=== PATIENT | male | born 1965 | race Native Hawaiian/Other Pacific Islander ===

== ENCOUNTER 2016-12-16 11:54 | Inpatient (IN) | payer MEDICAID ==
[2016-12-16 12:54] LABS: BASO % 0.4 % (0.0-2.0); EOS # 0.3 K/uL (0.0-0.7); EOS % 3.7 % (0.0-4.0); HEMATOCRIT 40.5 % (35.0-51.0); LYMPH # 2.3 K/uL (1.0-4.3); MEAN CELL VOLUME 79.6 fl (80.0-94.0); MEAN CORPUSCULAR HEMOGLOBIN 26.8 pg (27.0-31.0); MEAN CORPUSCULAR HGB CONC 33.7 g/dL (33.0-37.0); MEAN PLATELET VOLUME 10.8 fl (7.2-11.7); MONO # 0.6 K/uL (0.0-0.8); MONO % 8.1 % (0.0-10.0); NEUT # 3.8 K/uL (1.8-7.0); NEUT % 54.8 % (50.0-75.0); NRBC % 0.1 % (0.0-0.0); RED CELL DISTRIBUTION WIDTH 13.7 % (11.5-14.5)
[2016-12-16 12:55] LABS: RBC URINE 1 /hpf (0-3); URINE BILIRUBIN NEGATIVE (NEGATIVE); URINE BLOOD NEGATIVE (NEGATIVE); URINE COLOR STRAW (YELLOW); URINE GLUCOSE (UA) >=500 mg/dL (Normal); URINE KETONE NEGATIVE (NEGATIVE); URINE LEUKOCYTE ESTERASE NEG Leu/uL (Negative); URINE PROTEIN NEGATIVE (NEGATIVE); URINE UROBILINOGEN 0.2-1.0 mg/dL (0.2-1.0); WBC URINE < 1 /hpf (0-5)
[2016-12-16 13:05] LABS: PARTIAL THROMBOPLASTIN TIME 31.6 Seconds (25.6-37.1)
[2016-12-16 13:08] LABS: ALB/GLOB RATIO 1.4 (1.0-2.1); ALKALINE PHOSPHATASE 96 U/L (38-126); ALT/SGPT 67 U/L (21-72); AST/SGOT 43 U/L (17-59); BILIRUBIN,TOTAL 0.6 mg/dl (0.2-1.3); BLOOD UREA NITROGEN 18 mg/dl (9-20); CALCIUM 9.1 mg/dL (8.4-10.2); CARBON DIOXIDE 24 mmol/L (22-30); CHLORIDE 101 mmol/L (98-107); GFR AFRICAN-AMERICAN > 60; GLUCOSE,RANDOM 211 mg/dL (75-110); POTASSIUM 4.1 MMOL/L (3.6-5.0); SODIUM 136 mmol/l (132-148); TOTAL PROTEIN 7.4 G/DL (6.3-8.2)
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
--- NOTE | 2016-12-16 16:06 | RAD ---
HISTORY: Medical clearance COMPARISON: No prior. TECHNIQUE: Chest PA and lateral FINDINGS: LUNGS: No active pulmonary disease. PLEURA: No significant pleural effusion identified. No pneumothorax apparent. CARDIOVASCULAR: No radiographic findings to suggest acute or significant cardiovascular disease. OSSEOUS STRUCTURES: No significant abnormalities. VISUALIZED UPPER ABDOMEN: Normal. OTHER FINDINGS: None. IMPRESSION: No active disease. Please note: No preliminary interpretation of this examination rendered by emergency department personnel (Physician and/or PA declined to provide preliminary report of their findings/ observations).
[2016-12-16] MEDS: Insulin Regular 100 units/ml SC SCH ×2 (17:08→22:46)
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
[2016-12-16] MEDS ORDERED: Lactated Ringer's 1,000 ML IV SCH (23:59)
[2016-12-17] MEDS: Insulin Regular 100 units/ml SC SCH ×4 (04:14→22:32)
[2016-12-17] MEDS ORDERED: Dextrose 5%/0.45% NS 1,000 ML IV SCH (06:00)
[2016-12-17] MEDS ORDERED: Absorbable Gelatin Sponge Size 100 ONE (07:08)
[2016-12-17] MEDS ORDERED: Thrombin Topical 5,000 IU Spray Kit ONE (07:08)
[2016-12-17] MEDS ORDERED: ceFAZolin IV 1 gm in Dextrose 1 GM/50 ML BAG IVPB ONE (07:08)
[2016-12-17] MEDS ORDERED: Lidocaine 2% w Epi 1:100,000 Inj IJ ONE ×2 (07:08→08:33)
[2016-12-17] MEDS ORDERED: Bupivacaine HCl 0.25% PF (30 ml) Inj ONE (07:08)
[2016-12-17 07:09] LABS: CHOLESTEROL 188 mg/dL (0-199)
[2016-12-17] MEDS ORDERED: Propofol 10 mg/ml Inj (20 ML) ONE ×2 (07:22→07:40)
[2016-12-17] MEDS ORDERED: Rocuronium 10 mg/ml (5 ml) ONE ×2 (07:22→07:40)
[2016-12-17] MEDS ORDERED: Midazolam 2 MG/2 ML VIAL ONE ×2 (07:22→07:40)
[2016-12-17] MEDS ORDERED: Phenylephrine 10 mg/ml Inj ONE (07:22)
[2016-12-17] MEDS ORDERED: Succinylcholine 200 mg/10 ml Inj IV ONE ×2 (07:22→07:40)
[2016-12-17] MEDS ORDERED: ePHEDrine 50 mg/ml Inj ONE (07:22)
[2016-12-17] MEDS ORDERED: Lactated Ringer's 1,000 ML IV ONE ×2 (07:32→09:35)
[2016-12-17] MEDS ORDERED: Lidocaine 4% (Laryng-O-Jet) Kit MM ONE (07:40)
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
[2016-12-17] MEDS ORDERED: Neostigmine Methylsulfate 3mg/3ml Syringe IV ONE (09:04)
[2016-12-17] MEDS ORDERED: Bupivacaine 0.5% 50 ML IJ ONE (09:19)
[2016-12-17] MEDS: HYDROmorphone 0.5 mg/0.5 ml ISec IVP PRN ×4 (09:55→19:48)
--- NOTE | 2016-12-17 10:32 | CP.PCM.PN ---
Subjective - Date & Time of Evaluation Date of Evaluation: 12/17/16 Time of Evaluation: 10:15 - Subjective Subjective: Patient complains of bilateral shoulder pain in the PACU, left greater than right. Patient had shoulder pain and restricted range of motion prior to the surgery. He stated that he had been seeing a specialist for the condition but definitive treatment hasn't been planned yet. Care was taken during the positioning and surgery as to not strain the shoulder. Will order shoulder X-ray's as precaution prior to discharge. Objective - Vital Signs/Intake and Output Vital Signs (last 24 hours): Temp Pulse Resp BP Pulse Ox 96.3 F L 70 20 143/80 100 12/17/16 09:35 12/17/16 09:35 12/17/16 09:35 12/17/16 09:35 12/17/16 09:35 Intake and Output: 12/17/16 12/17/16 06:59 18:59 Intake Total 800 Balance 800 - Medications Medications: Current Medications Famotidine (Pepcid) 20 mg PO BID [facility] Last Admin: 12/17/16 09:18 Dose: Not Given Hydromorphone HCl (Dilaudid) 0.5 mg IVP Q4 PRN PRN Reason: Pain, severe (8-10) Hydromorphone HCl (Dilaudid) 0.5 mg IVP Q5M PRN PRN Reason: Pain, severe (8-10) Stop: 12/17/16 11:40 Last Admin: 12/17/16 10:14 Dose: 0.5 mg Dextrose/Sodium Chloride (Dextrose 5%-0.45% Ns 500 Ml) 500 mls @ 80 mls/hr IV .Q6H15M [facility] Stop: 12/18/16 00:07 Last Admin: 12/17/16 06:00 Dose: 80 mls/hr Influenza Virus Vaccine (Afluria (Pf)(18yr & Older)) 0.5 ml IM .ONCE ONE Stop: 12/18/16 10:01 Insulin Human Regular (Humulin R) 0 units SC Q6 AYAAN PRN Reason: Protocol Last Admin: 12/17/16 04:14 Dose: Not Given Meperidine HCl (Demerol) 12.5 mg IVP Q5M PRN PRN Reason: Shivering/Rigor Oxycodone/Acetaminophen (Percocet 5/325 Mg Tab) 1 tab PO Q4 PRN PRN Reason: Pain, moderate (4-7) Stop: 12/19/16 15:15 Pneumococcal Polyvalent Vaccine (Pneumovax 23 Vaccine) 0.5 ml IM .ONCE ONE Stop: 12/18/16 10:01 - Labs Labs: 12/16/16 12:45 12/16/16 12:45 PT 11.9 Seconds (9.8-13.1) 12/16/16 12:45 INR 1.1 (0.9-1.2) 12/16/16 12:45 APTT 31.6 Seconds (25.6-37.1) 12/16/16 12:45
--- NOTE | 2016-12-17 11:01 | CARD ---
APPROVED REPORT EKG Measurement Heart [id number] VT 150P16 [id number] <Conclusion> Sinus rhythm with premature atrial complexes in a pattern of bigeminy Otherwise normal ECG
--- NOTE | 2016-12-17 11:23 | CP.PCM.PN ---
Subjective - Date & Time of Evaluation Date of Evaluation: 12/17/16 Time of Evaluation: 11:19 - Subjective Subjective: 51 YO M seen on POD 0 s/p L4-L5 laminectomy. Patient is doing well. Patient still very sleepy secondary to the sedation but is able to respond to questions. Objective - Vital Signs/Intake and Output Vital Signs (last 24 hours): Temp Pulse Resp BP Pulse Ox 96.3 F L 70 20 143/80 100 12/17/16 09:35 12/17/16 09:35 12/17/16 09:35 12/17/16 09:35 12/17/16 09:35 Intake and Output: 12/17/16 12/17/16 06:59 18:59 Intake Total 800 Balance 800 - Medications Medications: Current Medications Cyclobenzaprine HCl (Flexeril) 10 mg PO TID PRN PRN Reason: Muscle spasm Docusate Sodium (Colace) 100 mg PO BID [facility] Famotidine (Pepcid) 20 mg PO BID [facility] Last Admin: 12/17/16 09:18 Dose: Not Given Hydromorphone HCl (Dilaudid) 0.5 mg IVP Q4 PRN PRN Reason: Pain, severe (8-10) Hydromorphone HCl (Dilaudid) 0.5 mg IVP Q5M PRN PRN Reason: Pain, severe (8-10) Stop: 12/17/16 11:40 Last Admin: 12/17/16 10:14 Dose: 0.5 mg Dextrose/Sodium Chloride (Dextrose 5%-0.45% Ns 500 Ml) 500 mls @ 80 mls/hr IV .Q6H15M [facility] Stop: 12/18/16 00:07 Last Admin: 12/17/16 06:00 Dose: 80 mls/hr Influenza Virus Vaccine (Afluria (Pf)(18yr & Older)) 0.5 ml IM .ONCE ONE Stop: 12/18/16 10:01 Insulin Human Regular (Humulin R) 0 units SC Q6 [facility] PRN Reason: Protocol Last Admin: 12/17/16 04:14 Dose: Not Given Meperidine HCl (Demerol) 12.5 mg IVP Q5M PRN PRN Reason: Shivering/Rigor Oxycodone/Acetaminophen (Percocet 5/325 Mg Tab) 1 tab PO Q4 PRN PRN Reason: Pain, moderate (4-7) Stop: 12/19/16 15:15 Pneumococcal Polyvalent Vaccine (Pneumovax 23 Vaccine) 0.5 ml IM .ONCE ONE Stop: 12/18/16 10:01 - Labs Labs: 12/16/16 12:45 12/16/16 12:45 PT 11.9 Seconds (9.8-13.1) 12/16/16 12:45 INR 1.1 (0.9-1.2) 12/16/16 12:45 APTT 31.6 Seconds (25.6-37.1) 12/16/16 12:45 - Constitutional Appears: No Acute Distress - Head Exam Head Exam: NORMAL INSPECTION - Eye Exam Eye Exam: Normal appearance - Respiratory Exam Respiratory Exam: Clear to Ausculation Bilateral, NORMAL BREATHING PATTERN. absent: Rhonchi, Wheezes - Cardiovascular Exam Cardiovascular Exam: REGULAR RHYTHM, +S1, +S2 - GI/Abdominal Exam GI & Abdominal Exam: Soft, Normal Bowel Sounds. absent: Tenderness - Extremities Exam Extremities Exam: absent: Calf Tenderness - Neurological Exam Neurological Exam: Alert, Awake - Skin Skin Exam: Normal Color, Warm Assessment and Plan - Assessment and Plan (Free Text) Assessment: 1) Recurrent Lumbar Spondylosis - S/P L4-L5 Laminectomy - No drains - F/U w/ post op CBC - Cyclobenzoprin 10 mg PO TID - Hydromorphone - PT 2) DVT prophylaxis - SCD - Start Lovenox on POD 1
[2016-12-17] MEDS ORDERED: Lactated Ringer's 500 ML IV ONE (11:36)
--- NOTE | 2016-12-17 11:38 | RAD ---
HISTORY: pain COMPARISON: No prior FINDINGS: BONES: Normal. No fracture. JOINTS: Normal. No osteoarthritis. SOFT TISSUE: Normal. OTHER FINDINGS: None . IMPRESSION: Normal Bone Xray.
--- NOTE | 2016-12-17 15:38 | OP ---
PROCEDURE DATE: 12/17/2016 PREOPERATIVE DIAGNOSIS: Lumbar herniated disk at L4-L5. POSTOPERATIVE DIAGNOSIS: Lumbar herniated disk at L4-L5. PROCEDURES: Right L4-L5 hemilaminotomy, medial facetectomy, decompression of the nerve root. Fluoroscopy has been used. Microscope has been used. SURGEON: Adiel Moody MD NETWORK DIRECTOR: Juli Tavarez PA-C. Juli Tavarez is a physician assistant sales director who stayed throughout the case from the beginning to the end and helped me to perform the surgery. DESCRIPTION OF PROCEDURE: The patient was brought to the operating room, anesthetized with general endotracheal anesthesia, placed in a prone position on a Mykel table. Care was taken to protect all the pressure points. Back of the lumbar area thoroughly prepped and draped in standard sterile manner after marking the skin incision for a lumbar laminectomy at L4-L5. After prepping and draping the area, skin has been incised. Bleeding skin had been controlled with bipolar rn bsn. By using a Bovie rn bsn, paraspinal muscles had been detached from the attachments of spinous process and lamina of L4-L5 on the right side. Marlene retractor has been applied to alter the facet joint of L4-L5 and fluoroscopy has been used in order to confirm this level. Under microscopic magnification, by a using a high-speed drill, the lamina of L4-L5 and medial part of the facets of L4-L5 have been drilled. Drilling is continued until the top and bottom of the ligamentum was seen. Drilling was also continued on the middle part of the facets until the turn of ligamentum flavum has been seen. Once this has been done, thinned out the lamina, medial part of the facets and ligamentum flavum has been removed, decompressing this area. Disk space has been examined. There was herniated disk noted. This was found to be not extruded, hence no further diskectomy has been performed. Foraminotomy has been performed. Hemostasis was best achieved. Fascia across the interspinous ligaments, spinous process with 1-Vicryl; subcutaneous tissue with 3-Vicryl. Skin has been closed with intradermal 3-0 Vicryl stitches. The patient tolerated the procedure. After procedure, mobilized to the recovery room in stabilized condition. Adiel Moody MD
[2016-12-17] MEDS: Oxycodone/Acetaminophen 5/325 mg Tab PO PRN ×2 (17:18→22:44)
--- NOTE | 2016-12-17 17:35 | RAD ---
PROCEDURE: Intraoperative Fluoroscopy. HISTORY: LUMBAR LAMINECTOMY FINDINGS: Fluoroscopic assistance was provided for lumbar laminectomy. Please fluoroscopic time (continuous mode) utilized during the procedure: 3.7 seconds.
[2016-12-18] MEDS: HYDROmorphone 0.5 mg/0.5 ml ISec IVP PRN ×2 (01:21→16:57)
[2016-12-18] MEDS: Insulin Regular 100 units/ml SC SCH ×4 (04:00→22:00)
[2016-12-18] MEDS: Oxycodone/Acetaminophen 5/325 mg Tab PO PRN ×2 (05:01→08:44)
[2016-12-18 06:47] LABS: BASO % 0.3 % (0.0-2.0); EOS # 0.1 K/uL (0.0-0.7); EOS % 1.2 % (0.0-4.0); HEMATOCRIT 41.2 % (35.0-51.0); LYMPH # 2.8 K/uL (1.0-4.3); LYMPH % 27.9 % (20.0-40.0); MEAN CORPUSCULAR HEMOGLOBIN 27.1 pg (27.0-31.0); MEAN CORPUSCULAR HGB CONC 33.9 g/dL (33.0-37.0); MEAN PLATELET VOLUME 10.5 fl (7.2-11.7); MONO % 9.7 % (0.0-10.0); NEUT % 60.9 % (50.0-75.0); NRBC % 0.2 % (0.0-0.0); WHITE BLOOD COUNT 9.9 K/uL (4.8-10.8)
[2016-12-18 06:55] LABS: BLOOD UREA NITROGEN 17 mg/dl (9-20); CALCIUM 9.2 mg/dL (8.4-10.2); CARBON DIOXIDE 31 mmol/L (22-30); CHLORIDE 97 mmol/L (98-107); GFR AFRICAN-AMERICAN > 60; GLUCOSE,RANDOM 221 mg/dL (75-110); POTASSIUM 4.5 MMOL/L (3.6-5.0); SODIUM 137 mmol/l (132-148)
[2016-12-18] MEDS ORDERED: Influenza Vaccine 18yr & older 0.5 ML/45 MCG SYR IM ONE (10:00)
[2016-12-18] MEDS ORDERED: Pneumococcal 23-Valent Vaccine IM ONE (10:00)
--- NOTE | 2016-12-18 13:56 | CP.PCM.PN ---
Subjective - Date & Time of Evaluation Date of Evaluation: 12/18/16 Time of Evaluation: 10:00 - Subjective Subjective: neurosurg f/u Dr. Modoy Patient complaining of severe low back pain. He says that the tingling and pain in his right leg is much better after the surgery, but he is unable to move around with PT much without severe pain. Denies CP/SOB/dizziness, feels constipated and bloated. Appetite ok. +void Objective - Vital Signs/Intake and Output Vital Signs (last 24 hours): Temp Pulse Resp BP Pulse Ox 99.1 F 97 H 20 105/65 95 12/18/16 07:28 12/18/16 09:52 12/18/16 07:28 12/18/16 07:28 12/18/16 09:52 - Medications Medications: Current Medications Cyclobenzaprine HCl (Flexeril) 10 mg PO TID PRN PRN Reason: Muscle spasm Last Admin: 12/18/16 05:07 Dose: 10 mg Docusate Sodium (Colace) 100 mg PO BID [facility] Last Admin: 12/18/16 08:41 Dose: 100 mg Famotidine (Pepcid) 20 mg PO BID [facility] Last Admin: 12/18/16 08:41 Dose: 20 mg Hydromorphone HCl (Dilaudid) 0.5 mg IVP Q4 PRN PRN Reason: Pain, severe (8-10) Last Admin: 12/18/16 01:21 Dose: 0.5 mg Hydromorphone HCl (Dilaudid) 2 mg PO Q4 PRN PRN Reason: Pain, moderate (4-7) Last Admin: 12/18/16 12:53 Dose: 2 mg Insulin Human Regular (Humulin R) 0 units SC Q6 [facility] PRN Reason: Protocol Last Admin: 12/18/16 04:00 Dose: Not Given Meperidine HCl (Demerol) 12.5 mg IVP Q5M PRN PRN Reason: Shivering/Rigor - Labs Labs: 12/18/16 05:20 12/18/16 05:20 PT 11.9 Seconds (9.8-13.1) 12/16/16 12:45 INR 1.1 (0.9-1.2) 12/16/16 12:45 APTT 31.6 Seconds (25.6-37.1) 12/16/16 12:45 - Back Exam Additional comments: TTP, no erythema, mild swelling as expected admits to sensation intact calves soft NT neg homans - Neurological Exam Neurological Exam: Alert, Awake, CN II-XII Intact, Oriented x3 Neuro motor strength exam: Right Lower Extremity: 4 (great toe ext/df/pf/knee flex/ext) Assessment and Plan (1) Herniated lumbar intervertebral disc Assessment & Plan: POD# 1 s/p L4/L5 hemilaminectomy, medial facetectomy, decompression -d/w Dr. Saenz, will hold d/c until pain better managed -cont PT -VTE proph -encourage OOB Status: Acute
[2016-12-18] MEDS ORDERED: Oxycodone/Acetaminophen 5/325 mg Tab PO PRN (14:45)
[2016-12-19] MEDS: HYDROmorphone 0.5 mg/0.5 ml ISec IVP PRN (00:26)
[2016-12-19] MEDS: Insulin Regular 100 units/ml SC SCH ×3 (04:59→12:56)
--- NOTE | 2016-12-19 07:53 | CP.PCM.PN ---
Subjective - Date & Time of Evaluation Date of Evaluation: 12/19/16 Time of Evaluation: 07:51 - Subjective Subjective: f/u Dr. Moody Patient walking around the room with walker. He complains of feeling a lot of gas and distention in his abdomen, but is not passing gas. Pain is improving. Denies CP/SOB/dizziness. Objective - Vital Signs/Intake and Output Vital Signs (last 24 hours): Temp Pulse Resp BP Pulse Ox 97.8 F 91 H 19 120/70 97 12/19/16 05:00 12/19/16 00:44 12/19/16 00:44 12/19/16 00:44 12/19/16 00:44 - Medications Medications: Current Medications Cyclobenzaprine HCl (Flexeril) 10 mg PO TID PRN PRN Reason: Muscle spasm Last Admin: 12/18/16 16:58 Dose: 10 mg Docusate Sodium (Colace) 100 mg PO BID [facility] Last Admin: 12/18/16 16:58 Dose: 100 mg Famotidine (Pepcid) 20 mg PO BID [facility] Last Admin: 12/18/16 16:58 Dose: 20 mg Hydromorphone HCl (Dilaudid) 0.5 mg IVP Q4 PRN PRN Reason: Pain, severe (8-10) Last Admin: 12/19/16 00:26 Dose: 0.5 mg Insulin Human Regular (Humulin R) 0 units SC [facility] PRN Reason: Protocol Lactulose (Enulose) 20 gm PO ONCE ONE Stop: 12/19/16 07:48 Meperidine HCl (Demerol) 12.5 mg IVP Q5M PRN PRN Reason: Shivering/Rigor Oxycodone/Acetaminophen (Percocet 5/325 Mg Tab) 2 tab PO Q4 PRN PRN Reason: Pain, moderate (4-7) Stop: 12/21/16 14:46 - Labs Labs: 12/18/16 05:20 12/18/16 05:20 PT 11.9 Seconds (9.8-13.1) 12/16/16 12:45 INR 1.1 (0.9-1.2) 12/16/16 12:45 APTT 31.6 Seconds (25.6-37.1) 12/16/16 12:45 - Exam Additional comments: slightly distended - Neurological Exam Neurological Exam: Alert, Awake, CN II-XII Intact, Oriented x3 Neuro motor strength exam: Right Lower Extremity: 4 Additional comments: tolerating ambulation well, somewhat slow and minimal distress - Psychiatric Exam Psychiatric exam: Normal Affect, Normal Mood - Skin Skin Exam: Dry, Intact, Normal Color, Warm Assessment and Plan (1) Herniated lumbar intervertebral disc Assessment & Plan: POD#2 s/p hemilamiectomy/facetectomy/decompression -montior for improvement of distention/passing gas -plan d/c home if improved -cont ambulation/OOB -VTE proph -PT/OT -d/w Dr. Moody Status: Acute
[2016-12-19 07:56] VITALS: O2SAT 96
--- NOTE | 2016-12-19 12:58 | CP.PCM.PN ---
Subjective - Date & Time of Evaluation Date of Evaluation: 12/19/16 Time of Evaluation: 12:57 - Subjective Subjective: Patient seen and examined bedside with attending. Complaints of mild abomdinal pain. Patient passing flatus, no BM since friday. Will give lactulose. Consider enema if no BM with lactulose. Patient doing well with PT. Has walker bedside. Objective - Vital Signs/Intake and Output Vital Signs (last 24 hours): Temp Pulse Resp BP Pulse Ox 99.5 F 91 H 20 125/75 96 12/19/16 07:56 12/19/16 07:56 12/19/16 07:56 12/19/16 07:56 12/19/16 07:56 - Medications Medications: Current Medications Cyclobenzaprine HCl (Flexeril) 10 mg PO TID PRN PRN Reason: Muscle spasm Last Admin: 12/18/16 16:58 Dose: 10 mg Docusate Sodium (Colace) 100 mg PO BID [facility] Last Admin: 12/19/16 08:23 Dose: 100 mg Famotidine (Pepcid) 20 mg PO BID [facility] Last Admin: 12/19/16 08:22 Dose: 20 mg Hydromorphone HCl (Dilaudid) 0.5 mg IVP Q4 PRN PRN Reason: Pain, severe (8-10) Last Admin: 12/19/16 00:26 Dose: 0.5 mg Insulin Human Regular (Humulin R) 0 units SC ACHS [facility] PRN Reason: Protocol Last Admin: 12/19/16 12:56 Dose: 8 units Oxycodone/Acetaminophen (Percocet 5/325 Mg Tab) 2 tab PO Q4 PRN PRN Reason: Pain, moderate (4-7) Stop: 12/21/16 14:46 Sodium Phosphate (Fleet Enema) 135 ml DE ONCE ONE Stop: 12/19/16 12:48 - Labs Labs: 12/18/16 05:20 12/18/16 05:20 PT 11.9 Seconds (9.8-13.1) 12/16/16 12:45 INR 1.1 (0.9-1.2) 12/16/16 12:45 APTT 31.6 Seconds (25.6-37.1) 12/16/16 12:45 - Constitutional Appears: Non-toxic, No Acute Distress - Eye Exam Eye Exam: Normal appearance - Respiratory Exam Respiratory Exam: NORMAL BREATHING PATTERN - Cardiovascular Exam Cardiovascular Exam: REGULAR RHYTHM - GI/Abdominal Exam GI & Abdominal Exam: Soft, Normal Bowel Sounds. absent: Distended, Guarding, Tenderness - Rectal Exam Rectal Exam: Deferred - Extremities Exam Extremities Exam: absent: Pedal Edema, Tenderness - Neurological Exam Neurological Exam: Alert, Awake, CN II-XII Intact, Oriented x3 - Psychiatric Exam Psychiatric exam: Normal Affect, Normal Mood - Skin Skin Exam: Dry, Intact Assessment and Plan - Assessment and Plan (Free Text) Assessment: 51 year old male s/p laminectomy, doing well postoperatively. has not had BM with complaints of mild abodminal pain. Encouraged patient to ambulate in hallways and drink plenty of fluids. Likely exacerbated by pain medication. will d/c dilaudid and percocet. can give toradol if needed # Lumbar Spondylosis - S/P L4-L5 Laminectomy pain control -physical therapy # DVT prophylaxis - SCDs -ambulation
--- NOTE | 2016-12-19 15:06 | CP.PCM.PCO ---
Assessment/Plan - Assessment/Plan Assessment (Free Text): Pt stable, ambulating in room, tolerating well. Pt passing gas and had a large BM after given Fleet enema. Pt feels better. cleared for d/c home by Dr. Saenz and Dr. Moody. Pt prefers to take Motrin for pain as the narcotics are constipating. Rx for Motrin and Flexeril given. Pt to resume rest of home meds. Pt to f/u with Dr. Moody in 1-2 weeks.
[2016-12-19 16:18] VITALS: BP 130/74; PULSE 78; RESP 18; TEMP 98.8
== END 2016-12-19 17:30 | disposition home or self-care (01) | DRG 758 ==
LOC: H.ER 11:54 → H.ERHOLD 13:32 → H.MEDSURG1 14:32
PROVIDERS: ADMIT Family Medicine; ATTEND Family Medicine
PROC: 00NY0ZZ Release Lumbar Spinal Cord, Open Approach (ICD-10-PCS; principal; 2016-12-17 09:45)
PROC: F07Z9FZ Gait Training/Functional Ambulation Treatment using Assistive, Adaptive, Supportive or Protective Equipment (ICD-10-PCS; 2016-12-18)
PROC: 3E0234Z Introduction of Serum, Toxoid and Vaccine into Muscle, Percutaneous Approach (ICD-10-PCS; 2016-12-18)
DX: M51.16 Intervertebral disc disorders with radiculopathy, lumbar region (principal); E11.9 Type 2 diabetes mellitus without complications; M47.26 Other spondylosis with radiculopathy, lumbar region; Z23 Encounter for immunization; Z79.4 Long term (current) use of insulin; Z87.891 Personal history of nicotine dependence